=== PATIENT | female | born 1995 | race Caucasian/White ===

== ENCOUNTER 2022-01-27 22:03 | Emergency (ER) | payer BC ==
[2022-01-27] MEDS ORDERED: Sodium Chloride 0.9% 10 ML Syringe FLUSH PRN (22:11)
[2022-01-27] MEDS ORDERED: Ondansetron 4 MG/2 ML SDV IVPUSH ONE (22:18)
[2022-01-27] MEDS ORDERED: Ketorolac 30 MG/ML SDV IVPUSH ONE (22:18)
[2022-01-27] MEDS ORDERED: Iopamidol 755 Mg/ML 100 ML Bottle IV ONE (22:21)
[2022-01-27] MEDS ORDERED: Sodium Chloride 0.9% 1,000 ML IV ONE (22:30)
[2022-01-27 22:46] LABS: ESTIMATED GFR 72 mL/min (>60)
== END 2022-01-27 23:50 | disposition home or self-care (01) ==
LOC: FB.ED 22:03
DX: R10.31 Right lower quadrant pain (principal)
CPT/HCPCS: 36415; 74177; 80048; 83605; 85025; 86140; 96361; 96374; 96375; 99284; J1885; J2405; J7030; Q9967

== ENCOUNTER 2023-06-14 11:35 | Day surgery (SDC) | payer BC ==
[~2023-06-14 11:35] MED LIST: Sodium Chloride 0.9% 10 ML Syringe FLUSH PRN
[2023-06-14] MEDS ORDERED: diphenhydrAMINE 50 MG/ML SDV IVPUSH ONE (11:36)
[2023-06-14] MEDS ORDERED: Midazolam 1 MG/ML 2 ML SDV IV ONE (11:36)
[2023-06-14] MEDS ORDERED: Dexamethasone 4 MG/ML 5 ML MDV IVPUSH ONE (11:36)
[2023-06-14] MEDS ORDERED: Ondansetron 4 MG/2 ML SDV IVPUSH ONE (11:36)
[2023-06-14] MEDS ORDERED: fentaNYL 100 MCG/2 ML SDV IV ONE (11:36)
[2023-06-14] MEDS ORDERED: Sugammadex Sodium 200 MG/2 ML VIAL IV ONE (11:36)
[2023-06-14] MEDS ORDERED: Propofol 200 MG/20 ML SDV IV ONE (11:36)
[2023-06-14] MEDS ORDERED: Rocuronium 100 MG/10 ML MDV IV ONE (11:36)
[2023-06-14] MEDS ORDERED: Ketorolac 30 MG/ML SDV IVPUSH ONE (11:36)
[2023-06-14] MEDS: Acetaminophen 500 MG Tab PO ONE (12:00)
[2023-06-14] MEDS: Gabapentin 300 MG Cap PO ONE (12:00)
[2023-06-14] MEDS: Bupivacaine 0.5%/EPINEPHrine 1:200,000 10 ML SDV INJECT ONE (12:14)
[2023-06-14] MEDS: Lactated Ringers 1,000 ML IV SCH (12:37)
[2023-06-14] MEDS: ceFAZolin 2 GM Vial IVPUSH ONE (12:39)
[2023-06-14] MEDS ORDERED: Lactated Ringers 1,000 ML IV ONE (14:00)
[2023-06-14] MEDS ORDERED: HYDROmorphone 2 MG/ML SDV IV ONE (15:30)
[2023-06-14] MEDS: Acetaminophen/HYDROcodone 325-5 MG Tab PO PRN (17:40)
== END 2023-06-14 18:15 | disposition home or self-care (01) ==
LOC: FB.SDS 11:35
PROVIDERS: ATTEND Surgery
DX: K81.1 Chronic cholecystitis (principal); K82.8 Other specified diseases of gallbladder; Z79.899 Other long term (current) drug therapy; Z88.2 Allergy status to sulfonamides
CPT/HCPCS: 00790; 88304; A9270-GY; J0690; J1100; J1170; J1200; J1885; J2250; J2405; J2704; J3010; J3490; J7120